=== PATIENT | female | born 1940 | race Caucasian/White ===

== ENCOUNTER 2017-12-19 21:20 | Emergency (ER) | payer OTHER ==
[2017-12-19 22:29] LABS: BASOPHIL % 0.1 % (0-2)
[2017-12-19 22:33] LABS: PLATELET COUNT 190 x10^3mcL (130-400); RED CELL DISTRIBUTION WIDTH 14.2 % (11.5-14.5)
[2017-12-19 22:35] LABS: CARBON DIOXIDE 26.3 mmol/L (21-32); CHLORIDE SERUM 102 mmol/L (98-107); CREATININE SERUM 1.3 mg/dL (0.6-1.0); GLUCOSE SERUM 96 mg/dL (74-106); SODIUM SERUM 136 mmol/L (136-145)
[2017-12-19 22:40] LABS: ALKALINE PHOSPHATASE 96 U/L (46-116); ALT/SGPT 14 U/L (14-59); AST/SGOT 20 U/L (15-37); BILIRUBIN TOTAL 0.4 mg/dL (0.20-1.00); CHOLESTEROL 169 mg/dL (<200); CHOLESTEROL/HDL RATIO 3.8; HDL CHOLESTEROL 45 mg/dL (40-60); LIPASE 132 IU/L (73-393); TOTAL PROTEIN, SERUM 7.5 g/dL (6.4-8.2)
[2017-12-19 22:41] LABS: ALBUMIN 3.3 g/dL (3.4-5.0); TRIGLYCERIDES 224 mg/dL (<150)
[2017-12-19 22:54] LABS: T3 TOTAL 0.83 ng/mL
[2017-12-19 23:07] LABS: FREE T4 1.23 ng/dL (0.76-1.46); FREE THYROXINE INDEX 3.4 ug/dL (1.4-4.5); T4(THYROXINE) 9.6 ug/dL (4.7-13.3)
[2017-12-19 23:40] VITALS: BP 170/47
== END 2017-12-19 23:40 | disposition home or self-care (01) ==
LOC: ED 21:20
PROVIDERS: Specialist
DX: T78.1XXA Other adverse food reactions, not elsewhere classified, initial encounter (principal); Z88.0 Allergy status to penicillin; Z88.2 Allergy status to sulfonamides; Z90.89 Acquired absence of other organs; Z90.49 Acquired absence of other specified parts of digestive tract; Z88.6 Allergy status to analgesic agent; X58.XXXA Exposure to other specified factors, initial encounter
CPT/HCPCS: 83880; 84439; J2930; J7030; J7620; Q0092; Q0163

== ENCOUNTER 2017-12-25 11:00 | Inpatient (IN) | payer OTHER ==
[~2017-12-25] VITALS: Ht 172.7 cm; Wt 107.2 kg
[2017-12-25 11:01] VITALS: Ht 172.7 cm; Wt 107.2 kg
[2017-12-25 11:43] LABS: PLATELET COUNT 209 x10^3mcL (130-400); RED CELL DISTRIBUTION WIDTH 14.2 % (11.5-14.5)
[2017-12-25 12:04] LABS: CALCIUM 8.7 mg/dL (8.5-10.1); CARBON DIOXIDE 28.6 mmol/L (21-32); CHLORIDE SERUM 96 mmol/L (98-107); CREATININE SERUM 1.1 mg/dL (0.6-1.0); GLUCOSE SERUM 119 mg/dL (74-106); POTASSIUM SERUM 3.3 mmol/L (3.5-5.1); SODIUM SERUM 132 mmol/L (136-145)
[2017-12-25 12:05] LABS: CK-MB < 0.5 ng/mL (0-3.6); CREATINE KINASE 18 U/L (26-192)
[2017-12-25 12:08] LABS: ALKALINE PHOSPHATASE 107 U/L (46-116); ALT/SGPT 57 U/L (14-59); AST/SGOT 44 U/L (15-37); BILIRUBIN TOTAL 0.7 mg/dL (0.20-1.00); TOTAL PROTEIN, SERUM 7.3 g/dL (6.4-8.2)
[2017-12-25 12:09] LABS: ALBUMIN 2.9 g/dL (3.4-5.0)
[2017-12-25 12:13] LABS: BAND NEUTROPHIL 5 % (0-10); BASOPHIL 0 % (0-2); MONOCYTE 5 % (0-7)
[2017-12-25] MEDS ORDERED: COZAAR100 MG PO (12:13)
[2017-12-25] MEDS ORDERED: IMITREX100 MG PO (12:13)
[2017-12-25] MEDS ORDERED: HYDROCHLOROTHIA25 MG PO (12:13)
[2017-12-25 12:14] LABS: SEGMENTED NEUTROPHILS 78 % (37-75)
[2017-12-25 12:15] LABS: PLATELET MORPHOLOGY PLATELETS NORMAL; rbc morphology (normal/abnorm) NORMAL (NORMAL)
[2017-12-25] MEDS ORDERED: ALBUTEROL0.63 MG/3 (12:15)
[2017-12-25] MEDS ORDERED: PROBIOTIC1 EAC1 PO (12:15)
[2017-12-25] MEDS ORDERED: PRA40 PO (12:15)
[2017-12-25] MEDS ORDERED: CENTRUM ADULTS1 EACH PO (12:16)
[2017-12-25] MEDS ORDERED: NATURE'S BLEND500 MG (12:16)
[2017-12-25] MEDS ORDERED: RED YEAST RICE30 GM (12:16)
[2017-12-25] MEDS ORDERED: MOVE FREE ULTR1 EACH PO (12:16)
[2017-12-25] MEDS ORDERED: ANASPAZ0.125 MG PO (12:17)
[2017-12-25 16:31] LABS: CHOLESTEROL/HDL RATIO 2.8; MAGNESIUM 1.8 mg/dL (1.8-2.4); PHOSPHOROUS 3.2 mg/dL (2.5-4.9)
[2017-12-25 16:40] LABS: FREE T4 1.46 ng/dL (0.76-1.46); FREE THYROXINE INDEX 3.5 ug/dL (1.4-4.5); T4(THYROXINE) 9.6 ug/dL (4.7-13.3)
[2017-12-25 16:41] LABS: T3 TOTAL 0.9 ng/mL
[2017-12-25 17:32] VITALS: BP 148/64
[2017-12-25 18:12] VITALS: BP 148/64
[2017-12-25 21:16] VITALS: BP 98/69
[2017-12-25 22:18] LABS: microscopic required? YES; urine erythrocyte 1+ (NEGATIVE)
[2017-12-25 22:27] LABS: AMPHETAMINE QUAL UR NONE DETECTED (See below)
[2017-12-26 04:34] LABS: BASOPHIL % 0.4 % (0-2); PLATELET COUNT 212 x10^3mcL (130-400)
[2017-12-26 04:42] VITALS: BP 122/50
[2017-12-26 04:42] LABS: RED CELL DISTRIBUTION WIDTH 14.7 % (11.5-14.5)
[2017-12-26 04:52] LABS: CALCIUM 8.4 mg/dL (8.5-10.1); CARBON DIOXIDE 33.5 mmol/L (21-32); CHLORIDE SERUM 99 mmol/L (98-107); CREATININE SERUM 0.9 mg/dL (0.6-1.0); GLUCOSE SERUM 168 mg/dL (74-106); POTASSIUM SERUM 3.7 mmol/L (3.5-5.1); SODIUM SERUM 138 mmol/L (136-145)
[2017-12-26 08:31] VITALS: BP 141/49
[2017-12-26 09:51] VITALS: BP 141/49
[2017-12-26 12:44] VITALS: BP 137/60
[2017-12-26 17:27] VITALS: BP 130/58
[2017-12-26 20:31] VITALS: BP 135/59
[2017-12-27 05:34] VITALS: BP 120/69
[2017-12-27 06:47] LABS: CALCIUM 8.8 mg/dL (8.5-10.1); CARBON DIOXIDE 27.8 mmol/L (21-32); CHLORIDE SERUM 97 mmol/L (98-107); CREATININE SERUM 1.1 mg/dL (0.6-1.0); GLUCOSE SERUM 171 mg/dL (74-106); POTASSIUM SERUM 3.8 mmol/L (3.5-5.1); SODIUM SERUM 135 mmol/L (136-145)
[2017-12-27 06:54] LABS: BASOPHIL % 0.1 % (0-2); PLATELET COUNT 241 x10^3mcL (130-400)
[2017-12-27 09:20] VITALS: BP 111/66
[2017-12-27 12:35] VITALS: BP 156/79
[2017-12-27 17:00] VITALS: BP 152/76
[2017-12-27 19:20] VITALS: BP 134/61
[2017-12-28 06:07] VITALS: BP 133/76
[2017-12-28 06:52] LABS: CALCIUM 8.6 mg/dL (8.5-10.1); CARBON DIOXIDE 32.4 mmol/L (21-32); CHLORIDE SERUM 97 mmol/L (98-107); CREATININE SERUM 1.1 mg/dL (0.6-1.0); GLUCOSE SERUM 112 mg/dL (74-106); POTASSIUM SERUM 3.6 mmol/L (3.5-5.1); SODIUM SERUM 137 mmol/L (136-145)
[2017-12-28 06:53] LABS: BASOPHIL % 0.2 % (0-2); PLATELET COUNT 236 x10^3mcL (130-400)
[2017-12-28 09:34] VITALS: BP 133/76
[2017-12-28] MEDS ORDERED: ECO81 PO (14:33)
[2017-12-28] MEDS ORDERED: PREDNISONE20 MG PO ×2 (14:34→14:35)
[2017-12-28 14:35] VITALS: BP 151/79
[2017-12-28] MEDS ORDERED: LEVAQUIN500 M1 PO (14:40)
[2017-12-28 15:09] VITALS: BP 151/79
== END 2017-12-28 15:51 | disposition home or self-care (01) | DRG 202 ==
LOC: ED 11:00 → DU 16:04
PROVIDERS: Emergency Medicine; Family Medicine
DX: J45.901 Unspecified asthma with (acute) exacerbation (principal); J96.01 Acute respiratory failure with hypoxia; N17.0 Acute kidney failure with tubular necrosis; E87.1 Hypo-osmolality and hyponatremia; E44.0 Moderate protein-calorie malnutrition; E87.6 Hypokalemia; R73.03 Prediabetes; D72.829 Elevated white blood cell count, unspecified; I10 Essential (primary) hypertension; I34.1 Nonrheumatic mitral (valve) prolapse; Z96.651 Presence of right artificial knee joint; Z68.34 Body mass index [BMI] 34.0-34.9, adult; Z91.19 Patient's noncompliance with other medical treatment and regimen; T38.0X5A Adverse effect of glucocorticoids and synthetic analogues, initial encounter; Y92.238 Other place in hospital as the place of occurrence of the external cause
CPT/HCPCS: 36600; 83880; 84439; 94150; J1644; J1940; J1956; J2405; J2920; J2930; J3490; J7030; J7613; J7620; J7626; J7644; Q0092; Q9967